=== PATIENT | female | born 1950 | race Caucasian/White ===

== ENCOUNTER → 2020-12-28 | Outpatient (CLI) | payer MEDICARE ==
--- NOTE | 2020-12-28 10:26 | CT ---
3 EXAMINATION TYPE: CT shoulder LT wo con DATE OF EXAM: 12/28/2020 COMPARISON: none HISTORY: Left shoulder pain CT DLP: [address] of the left shoulder with reconstruction imaging. TECHNIQUE: Unenhanced CT of the left shoulder was performed with bone and soft tissue window settings submitted in the axial coronal and sagittal planes. At a separate workstation 3-D TR imaging was ob tained. FINDINGS: I do not see evidence for fracture or dislocation. No evidence for subacromial impingement as there is a flat acromium. AC joint arthropathy with mild spurring and a vacuum changes seen. Mi ld spur formation involving the greater humeral tuberosity. Glenohumeral joint space is moderately t o severely narrowed. No obvious rotator cuff abnormality seen on CT. MRI is much more sensitive and specific to rotator cuff pathology. No soft tissue masses appreciated. Visualized portions of the r ight lung demonstrate right apical scarring. IMPRESSION: 1. Degenerative changes
== END | disposition home or self-care (01) ==
LOC: RADCTMAIN 08:17
PROVIDERS: ATTEND Orthopaedic Surgery Sports Medicine
DX: M19.012 Primary osteoarthritis, left shoulder (principal)

== ENCOUNTER → 2020-12-28 | Outpatient (CLI) | payer MEDICARE ==
[2020-12-28 09:29] LABS: Anisocytosis Slight; HCT 33.2 % (34.0-46.0); HGB 10.9 gm/dL (11.4-16.0); MCH 28.5 pg (25.0-35.0); MCHC 32.9 g/dL (31.0-37.0); MCV 86.7 fL (80.0-100.0); Mean Platelet Volume 6.5; Platelet Count 397 k/uL (150-450); RBC 3.83 m/uL (3.80-5.40); RDW 17.9 % (11.5-15.5); WBC 6.5 k/uL (3.8-10.6)
[2020-12-28 09:31] LABS: Appearance,Urine Clear (Clear); Bilirubin,Urine Negative (Negative); Blood,Urine Negative (Negative); Color,Urine Yellow; Glucose,Urine (UA) Negative (Negative); Ketones,Urine Negative (Negative); Leukocyte Esterase,Urine Small (Negative); Mucus,Urine Rare /hpf; Nitrite,Urine Negative (Negative); PH, Urine 5.5 (5.0-8.0); Protein,Urine Negative (Negative); RBC,Urine 1 /hpf (0-5); Specific Gravity,Urine 1.017 (1.001-1.035); WBC,Urine 2 /hpf (0-5)
[2020-12-28 09:39] LABS: INR 0.8 (<1.2); Prothrombin Time 9.4 sec (9.0-12.0)
[2020-12-28 09:42] LABS: Albumin 4.2 g/dL (3.5-5.0); Calcium 9.4 mg/dL (8.4-10.2); Potassium 5.1 mmol/L (3.5-5.1); Total Bilirubin 0.3 mg/dL (0.2-1.3); Total Protein 6.6 g/dL (6.3-8.2)
== END | disposition home or self-care (01) ==
LOC: LABPAT 08:38
PROVIDERS: ATTEND Orthopaedic Surgery Sports Medicine
DX: Z01.812 Encounter for preprocedural laboratory examination (principal)
CPT/HCPCS: 36415; 80053; 81001; 85027; 85610; 85730; 87070

== ENCOUNTER 2021-01-11 06:36 | Inpatient (IN) | payer MEDICARE ==
[2021-01-04 14:41] VITALS: BMI 34.9
[~2021-01-11 06:36] MED LIST: ACETAMINOPHEN TAB 500 MG TAB PO PRN; DEXAMETHASONE SOD PHOSPHATE 4 MG/ML 1 ML VIAL IV ONE; GABAPENTIN 300 MG CAP PO PRN; LACTATED RINGERS 1,000 ML IV SCH; LIDOCAINE 1% (10MG/ML) FOR IV START INTRADERMA PRN; MELOXICAM 7.5 MG TAB PO PRN; ONDANSETRON 4 MG/2 ML VIAL IVP ONE; ONDANSETRON 4 MG/2 ML VIAL IVP PRN; TRANEXAMIC ACID 1,000 MG in SODIUM CHLORIDE 0.9% 100 ML IVPB PRN
[2021-01-11] MEDS ORDERED: ONDANSETRON 4 MG/2 ML VIAL IVP PRN ×2 (07:00→10:06)
[2021-01-11] MEDS ORDERED: HYDROmorphone 0.5 MG/0.5 ML SYRINGE IVP PRN ×3 (07:00→10:06)
[2021-01-11] MEDS ORDERED: MIDAZOLAM 2 MG/2 ML VIAL IV ONE (07:34)
[2021-01-11] MEDS ORDERED: ePHEDrine SULFATE/0.9% NACL/PF 50 MG/5 ML SYRINGE IV ONE (07:50)
[2021-01-11] MEDS ORDERED: PHENYLEPHRINE-0.9% NACL SYG 1,000 MCG/10 ML SYRINGE ONE (07:50)
[2021-01-11] MEDS ORDERED: NEOSTIGMINE 1 MG/ML 10 ML VIAL ONE (07:50)
[2021-01-11] MEDS ORDERED: fentaNYL (PF) 50 MCG/ML 2 ML AMP ONE (07:50)
[2021-01-11] MEDS ORDERED: PROPOFOL 10 MG/ML 20 ML VIAL IV ONE (07:50)
[2021-01-11] MEDS ORDERED: SUCCINYLCHOLINE CHLORIDE 100 MG/5 ML SYR IV ONE (07:50)
[2021-01-11] MEDS ORDERED: TRANEXAMIC ACID 1,000 MG/10 ML VIAL ONE (07:50)
[2021-01-11] MEDS ORDERED: SODIUM CHLORIDE 0.9% 100 ML BAG ONE (07:50)
[2021-01-11] MEDS ORDERED: GLYCOPYRROLATE 0.2 MG/ML 2 ML VIAL ONE (07:50)
[2021-01-11] MEDS ORDERED: LIDOCAINE 1% INJ 10MG/ML (20 ML MDV) ONE (07:50)
[2021-01-11] MEDS ORDERED: ROPIVACAINE 5 MG/ML 30 ML VIAL ONE (07:50)
[2021-01-11] MEDS ORDERED: ROCURONIUM 10 MG/ML (5 ML VIAL) IV ONE (07:50)
--- NOTE | 2021-01-11 07:54 | P.ANPRN ---
Procedure Note - Anesthesia - Nerve Block Performed Left Interscalene Single Time Out Performed: Yes ([id number]) Date of Procedure: 01/11/21 Procedure Start Time: 07:34 Procedure Stop Time: 07:37 Location of Patient: PreOp Indication: Acute Post-Operative Pain, Requested by Surgeon Specifically requested for management of pain by DrMichelle: Bryson Steiner Sedation Type: Sedate with meaningful contact maintained Preparation: Sterile Prep Position: Supine Catheter: None Needle Types: Pajunk Needle Gauge: 21 Ultrasound used to visualize needle placement: Yes Ultrasound used to observe medication spread: Yes Injectate: 0.5% Ropivacaine (see comment for volume) (30cc) Blood Aspirated: No Pain Paresthesia on Injection Noted: No Resistance on Injection: Normal Image Stored and Saved: Yes Events: Uneventful and Well Tolerated
[2021-01-11] MEDS ORDERED: ceFAZolin 3,000 MG in SODIUM CHLORIDE 0.9% IRRIGATIO 3,000 ML IRRIGATION ONE (08:00)
[2021-01-11] MEDS ORDERED: VANCOMYCIN 1,000 MG VIAL MISCELLANE ONE (09:19)
[2021-01-11] MEDS ORDERED: LACTATED RINGERS 1,000 ML IV ONE (09:38)
[2021-01-11] MEDS ORDERED: HYDROmorphone 0.2 MG/1 ML SYRINGE IVP PRN (10:06)
[2021-01-11] MEDS ORDERED: METOCLOPRAMIDE 5 MG/ML 2 ML VIAL IVP PRN (10:06)
[2021-01-11] MEDS ORDERED: diphenhydrAMINE 25 MG CAP PO PRN (10:06)
[2021-01-11] MEDS ORDERED: SENNOSIDES-DOCUSATE SODIUM 1 EACH TAB PO PRN (10:06)
[2021-01-11] MEDS ORDERED: HYDROcodone/APAP 7.5-325MG 1 EACH TAB PO PRN (10:11)
--- NOTE | 2021-01-11 10:46 | XR ---
EXAMINATION TYPE: XR shoulder limited LT DATE OF EXAM: 01/11/2021 CLINICAL HISTORY: Pain. TECHNIQUE: Single portable view of left shoulder is obtained immediately postoperatively. COMPARISON: CT 2 weeks ago. FINDINGS: Metallic hardware from left shoulder surgery is satisfactory in position on frontal project ion with surrounding gas from recent surgery. [place] osseous structures are demineralized. Left basil ar opacity likely reflecting atelectatic changes noted. IMPRESSION: As above.
--- NOTE | 2021-01-11 11:21 | OP ---
OPERATIVE REPORT DATE OF PROCEDURE: 01/11/2021. SURGEON: Bryson Steiner MD. SCIENTIFIC INFORMATICS PROJECT LEADER: Henrique HAILE. PREOPERATIVE DIAGNOSIS: Left shoulder osteoarthrosis. POSTOPERATIVE DIAGNOSIS: Left shoulder osteoarthrosis. OPERATION: Left shoulder hemiarthroplasty. ANESTHESIA: General endotracheal. ESTIMATED BLOOD LOSS: 200 mL. COMPLICATIONS: None apparent. DISPOSITION: Postanesthesia care unit. DRAINS: None. INDICATIONS: Myesha is a very pleasant 70-year-old female with longstanding left shoulder pain. Workup including x-rays and MRI revealed advanced osteoarthrosis of the left shoulder. At this point, it is felt that she has failed conservative management. She would like to proceed with operative intervention. Risks of procedure were discussed with her in detail. These risks included, but were not limited to risk of infection, nerve damage, bleeding, pain, instability in the shoulder, loosening of the implants and deep infection. There is also risk of deep vein thrombosis which could lead to fatal pulmonary embolism. Of note, in her case, she did have a fairly significant and unusual anteversion of her glenoid. I did talk to her about potentially proceeding with just a hemiarthroplasty versus a reverse shoulder arthroplasty versus a total shoulder arthroplasty. We did discuss with her preoperatively that this would be an intraoperative decision. All of her questions with regard to the risks of procedure were answered to her satisfaction. Appropriate informed consent was obtained. DESCRIPTION OF PROCEDURE: The patient was identified in preoperative holding area. Surgical sites marked by both the patient and myself. She was given 2 grams of Ancef IV for prophylactic purposes. She was then transferred to the operative suite. She was placed supine on the operating room table. A general anesthetic was then administered and dosed per the anesthesia department without apparent complication. Examination under anesthesia was then performed of the left shoulder. Elevation was to 90 degrees. External rotation at the side was to 30 degrees. The patient was then placed in the beach chair position, well-padded and prepared for surgery. Great care was taken to ensure that her cervical spine was in neutral alignment, well-padded and maintained that way throughout the operative procedure. Great care was also taken to ensure that her legs were appropriately padded as well. The patient's left upper extremity was then prepped and draped in the usual sterile fashion. Standard surgical pause undertaken to ensure that we were operating on the correct site and that appropriate preoperative antibiotics had been given. All staff in the room were in agreement and we proceeded. The acromion AC joint clavicle and coracoid were marked with surgical pen. A planned incision starting at the level of the clavicle and extending distally over the deltopectoral interval approximately 1 cm lateral to the coracoid was marked with surgical pen. The incision was then made with a 10 blade scalpel. Dissection was carried down sharply in deltoid fascia. Deltopectoral interval was identified at the level of the clavicle. A small band retractor was then placed onto the proximal deltoid. I then released the deltoid fascia on the lateral aspect of the cephalic vein. The vein was then left in its bed medially. The cephalic vein was protected throughout the entire case. I then identified the flat clavipectoral fascia. This was incised proximally at the level of the coracoacromial ligament. The coracoacromial ligament was then left intact. I then used my finger to spread the interval between the conjoint tendon and the subscapularis. I felt for the axillary nerve which was readily palpable. I then cleared the acromial and subdeltoid spaces of bursal and scar tissue. I then utilized a Brown retractor to hold the deltoid and expose the humeral head. I then identified the bicipital groove. The biceps sheath, tendon sheath was then incised laterally. The long head of the biceps was then tenodesed to the surrounding fascia with 0 Vicryl interrupted sutures. I then proceeded to release the subscapularis in the anterior inferior shoulder capsule. The rotator cuff was inspected. The rotator cuff was intact. The rotator interval was identified. The course of the biceps tendon was also identified as mentioned. I then released the rotator interval. This was released at the base of the coracoid and then out laterally. The subscapularis and the capsule were then released intratendinously. The subscapularis and capsule release extended distally in a lazy-S fashion approximately 1 cm medial to the biceps tendon. I then continued to release the capsule along the inferior neck in a vertical fashion to approximately the 6 o'clock position. Great care was taken to ensure the capsule was always visualized as it was released as to avoid injuring the axillary nerve. I then brought the Contreras turntable engineer with the arm externally rotated and abducted. I continued to release the capsule inferomedially to the 4 o'clock position. The inferior osteophytes were now removed as well. This was done with a rongeur. I then proceeded with preparation of the humerus. I removed all the goat's yip osteophytes. I then removed the subchondral plates from the superior aspect of the humeral head utilizing a large rongeur. I then used a starting reamer to gain access to the humeral canal. This was again 1 cm medial to the rotator cuff insertion and 1 cm posterior to the bicipital groove. I then prepared the humeral canal with hand reaming. I started with a 6 mm reamer, increased incrementally in 1 mm increments until firm resistance was encountered. This was at 11 mm. The reamer handle was then left in place. I then utilized a humeral resection guide set at 30 degrees of retrotorsion. The cutting block was then set at approximately 1-2 mm above the insertion of the rotator cuff. I then proceeded to osteotomized the humeral head with an oscillating saw. I removed the resection guide and then completed the osteotomy. I then proceeded to broach the canal. I started with a size 7 broach and incrementally increased up to a size 11 broach. The size 11 trial stem was then left in place. I then pulled the proximal humerus out laterally. I inspected the joint. The stump of the long head biceps tendon was then removed. She did have a fairly significant sized loose body that was in the joint which was removed. I then placed the Bhattman retractor on the posterior glenoid. The Contreras stand was brought in and the arm was placed in approximately 80 degrees of abduction and then slight flexion on a Contreras stand. I then inspected the glenoid. 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 It was anteverted very significantly. The anterior rim of the glenoid was flush with the coracoid. I made a decision at this point in time that it was not amenable to any kind of glenoid fixation whether either be a reverse shoulder replacement or a standard glenoid. Decision was made to just proceed with a hemiarthroplasty at this point due to the significant dysplasia of the glenoid. I then exposed the proximal humerus. I then trialed the humeral head, started with a 42 head and proceeded up to a 46 head. I did try to maximize the head size as much as possible. A 46 x 24 x 47 head fit very nicely and secure. It was very stable throughout a range of motion. I then proceeded to place the real stem and real humeral head. I had the customer development representative open a Biomet size 11 mini stem and a 46 x 24 x 47 head. The stem was then implanted into the proximal humerus in approximately 30 degrees of retrotorsion. The Fernandez taper was then impacted into the humeral head on the back table. It was then impacted onto a dry trunnion and Fernandez taper on the actual stem. The shoulder was then reduced. It was stable throughout a range of motion. I then proceeded with repair of the subscapularis and rotator interval. The shoulder was then thoroughly irrigated with sterile saline solution with antibiotic added via pulse lavage. The rotator interval was closed very tightly with 0 Vicryl interrupted sutures. The subscapularis was then repaired with #2 FiberWire interrupted suture. I was able to repair the subscapularis with the arm in 20-30 degrees of external rotation. It was a very easy repair without any undue tension on the tendon itself. Again the wound was thoroughly irrigated with sterile saline solution with antibiotic added. Approximately 500 mg of vancomycin powder was then placed deep. The deltopectoral interval was then closed with 0 Vicryl interrupted suture. Again, irrigation was then taken place via pulse lavage. The remaining 500 mg of vancomycin powder was placed subcutaneously. The subcutaneous tissue was closed with 2-0 Vicryl interrupted suture and the skin was closed with a running 3-0 Quill suture. Dermabond was applied to the incision and a sterile dressing was applied. The patient's left upper extremity was placed in a standard sling. All sponge and needle counts were deemed correct prior to closure. The patient tolerated the procedure without apparent complication. She was transferred to the recovery room in stable condition. Of note, prior to closing the deltopectoral interval, the axillary nerve was again palpated and found to be intact. MMODL / IJN: [id number] /
[2021-01-11] MEDS: LACTATED RINGERS 1,000 ML IV SCH ×2 (14:10→23:02)
[2021-01-11] MEDS ORDERED: ALBUTEROL NEBULIZED 2.5 MG/3 ML INHALATION PRN (14:59)
--- NOTE | 2021-01-11 17:17 | P.CONS ---
History of Present Illness - Reason for Consult Consult date: 01/11/21 Medical management Requesting physician: Bryson Steiner - Chief Complaint Left shoulder surgery - History of Present Illness Consultation: This is a very pleasant 70-year-old patient of Dr. Montoya. Chronic stable medical conditions include COPD, glaucoma, essential hypertension, primary osteoarthritis in multiple joints, anxiety depression. Patient has undergone left shoulder surgery. Left arm is in a sling. No nausea vomiting. Sitting up in a chair. Patient's brother is visiting. No chest pain or shortness of breath. Patient's had a cardiac catheterization prickly but is not sure what was done Review of systems: GEN.: None EYES: None HEENT: None NECK: None RESPIRATORY: None CARDIOVASCULAR: None GASTROINTESTINAL: Takes laxatives GENITOURINARY: Urinary incontinence MUSCULOSKELETAL: As above LYMPHATICS: None HEMATOLOGICAL: None PSYCHIATRY: None NEUROLOGICAL: [Trouble sleeping Past medical history to include: COPD, glaucoma, essential hypertension primary osteoarthritis, pulmonary embolism, cardiac catheterization patient not sure what was done, anxiety depression Social history: Patient smoked from 1968 through 1985. One pack a day. Alcohol rarely. Lives alone Physical examination: VITAL SIGNS: 97.8, 84, 17, 130/75, 95% on 2 L GENERAL: BMI 35.3, sitting on a chair, awake. EYES: Pupils equal. Conjunctiva normal. Admitting eyeglasses HEENT: External appearance of nose and ears normal, oral cavity grossly normal. NECK: JVD not raised; masses not palpable. HEART: First and second heart sounds are normal; no edema. LUNGS: Respiratory rate normal; clear to auscultation MUSCULAR skeletal: Evidence of OA especially in the hands, left shoulder dressing, left arm in a sling. Patient is able to move her fingers and has sensations preserved. ABDOMEN: Soft, nontender, liver spleen not palpable, no masses palpable. PSYCH: Alert and oriented x3; mood and affect normal. NEUROLOGICAL: Cranial nerves grossly intact; no facial asymmetry, power and sensation grossly intact. LYMPHATICS: No lymph nodes palpable in the axilla and neck INVESTIGATIONS, reviewed in the clinical context: WBC 6.5 hemoglobin 10.9 platelets 397 potassium 5.1 creatinine 0.89 Coronavirus [PCR]-not detected Assessment and plan: -Left shoulder hemiarthroplasty. Left arm is in a sling. Pain medications as per Dr. Steiner. -COPD in a previous smoker Continue with inhalers : Chronic insomnia continue with Pamelor -Chronic constipation Place the patient on Senokot-S -Essential hypertension Continue with lisinopril and Norvasc keeping a close eye on the blood pressure -Primary osteoarthritis Use. Medications as needed -Anxiety depression otherwise specified Continue with Abilify, fluoxetine, Klonopin -Obesity BMI 35.3 Weight loss measures as outpatient and follow with PCP Care was discussed with the patient and brother at the bedside. Home medications resumed. Thank you Dr. Steiner Past Medical History Past Medical History: COPD, Eye Disorder, Hypertension, Osteoarthritis (OA), Pulmonary Embolus (PE) Additional Past Medical History / Comment(s): glaucoma History of Any Multi-Drug Resistant Organisms: None Reported Past Surgical History: Back Surgery, Heart Catheterization, Hysterectomy, Joint Replacement Additional Past Surgical History / Comment(s): back fusion, benito knee replacement, benito shoulder replacement, sinus sx Past Anesthesia/Blood Transfusion Reactions: Previous Problems w/ Anesthesia Additional Past Anesthesia/Blood Transfusion Reaction / Comm: states with one sx "was hard to wake up" Smoking Status: Former smoker - Past Family History Mother Family Medical History: Deep Vein Thrombosis (DVT) Medications and Allergies Home Medications Medication Instructions Recorded Confirmed Type ARIPiprazole [Abilify] 20 mg PO QAM 01/04/21 01/11/21 History Albuterol Inhaler [Ventolin Hfa 2 puff INHALATION RT-QID PRN 01/04/21 01/11/21 History Inhaler] Cholecalciferol [Vitamin D3 (25 25 mcg PO DAILY 01/04/21 01/04/21 History Mcg = 1000 Iu)] Diclofenac Sodium [Voltaren-Xr] 100 mg PO DAILY 01/04/21 01/04/21 History FLUoxetine HCL [Sarafem] 120 mg PO QAM 01/04/21 01/11/21 History Ferrous Sulfate [Feosol] 325 mg PO DAILY 01/04/21 01/11/21 History HYDROcodone/APAP 5-325MG [[place] 1 tab PO Q6HR PRN 01/04/21 01/11/21 History 5-325] Latanoprost/Pf [Latanoprost 0.005% 2 drop BOTH EYES HS 01/04/21 01/11/21 History Eye Drop] Mometasone/Formoterol [Dulera 200 2 puff INHALATION BID 01/04/21 01/11/21 History Mcg-5 Mcg Inhaler] Nortriptyline HCl [Pamelor] 75 mg PO HS 01/04/21 01/11/21 History Vits A,C,E/Lutein/Minerals 1 each PO DAILY 01/04/21 01/04/21 History [Ocuvite with Lutein Tablet] amLODIPine [Norvasc] 10 mg PO HS 01/04/21 01/11/21 History clonazePAM [KlonoPIN] 0.5 mg PO DIRECTED PRN 01/04/21 01/11/21 History tiZANidine [Zanaflex] 4 mg PO DIRECTED PRN 01/04/21 01/11/21 History Doxycycline Hyclate 100 mg PO BID #10 tab 01/11/21 Rx lisinopriL 10 mg PO 0900,2100 01/11/21 01/11/21 History Allergies Allergy/AdvReac Type Severity Reaction Status Date / Time ciprofloxacin [From Cipro] Allergy Rash/Hives Verified 01/04/21 14:07 Physical Exam Vitals: Vital Signs Temp Pulse Pulse Resp BP BP Pulse Ox 01/11/21 14:00 97.8 F 84 17 130/75 95 01/11/21 13:32 77 16 114/59 96 01/11/21 13:04 77 16 117/55 95 01/11/21 12:34 73 16 122/57 95 01/11/21 12:01 77 16 129/60 96 01/11/21 11:50 75 16 114/55 94 L 01/11/21 11:20 75 16 124/60 92 L 01/11/21 11:02 75 16 130/79 99 01/11/21 10:45 74 16 123/59 99 01/11/21 10:30 74 16 127/64 100 01/11/21 10:16 70 16 129/60 100 01/11/21 10:04 97.2 F L 73 16 144/67 100 01/11/21 07:46 75 16 116/56 98 01/11/21 07:05 97.7 F 85 16 124/61 95 Intake and Output 01/11/21 01/11/21 01/11/21 06:59 14:59 22:59 Intake Total 1551 Output Total 200 Balance 1351 Intake: IV 1551 Output: Estimated Blood Loss 200 Other: Weight 90.3 kg
[2021-01-11] MEDS: SYMBICORT 160-4.5 MCG INHALER INHALATION SCH (19:28)
[2021-01-11 20:05] VITALS: RESP 16
[2021-01-11] MEDS: lisinopriL 10 MG TAB PO SCH (20:06)
[2021-01-11] MEDS ORDERED: LATANOPROST 0.005% OPHTH DROPS 2.5 ML BTL BOTH EYES SCH (21:00)
[2021-01-11] MEDS ORDERED: NORTRIPTYLINE 25 MG CAP PO SCH (21:00)
[2021-01-12] MEDS: HYDROcodone/APAP 7.5-325MG 1 EACH TAB PO PRN ×2 (03:47→09:32)
[2021-01-12 04:59] VITALS: BP 117/72; PULSE 75; TEMP 98.1
[2021-01-12 05:39] LABS: Anisocytosis Slight; Basophils % (A) 0 %; Eosinophils # (A) 0.1 k/uL (0-0.7); Eosinophils % (A) 1 %; HCT 31.7 % (34.0-46.0); HGB 10.5 gm/dL (11.4-16.0); Lymphocytes # (A) 1.1 k/uL (1.0-4.8); Lymphocytes % (A) 15 %; MCH 29.1 pg (25.0-35.0); MCHC 33.2 g/dL (31.0-37.0); MCV 87.5 fL (80.0-100.0); Mean Platelet Volume 6.8; Monocytes # (A) 0.5 k/uL (0-1.0); Monocytes % (A) 7 %; Neutrophils # (A) 5.9 k/uL (1.3-7.7); Neutrophils % (A) 77 %; Platelet Count 330 k/uL (150-450); RBC 3.62 m/uL (3.80-5.40); RDW 17.7 % (11.5-15.5); WBC 7.6 k/uL (3.8-10.6)
[2021-01-12] MEDS: LACTATED RINGERS 1,000 ML IV SCH (07:55)
[2021-01-12] MEDS: lisinopriL 10 MG TAB PO SCH (08:14)
[2021-01-12] MEDS: SYMBICORT 160-4.5 MCG INHALER INHALATION SCH (08:25)
[2021-01-12] MEDS ORDERED: FERROUS SULFATE 325 MG TAB PO SCH (09:00)
[2021-01-12] MEDS ORDERED: VIT A,C & E-LUTEIN-MINERALS 1 EACH TAB PO SCH (09:00)
[2021-01-12] MEDS ORDERED: FLUoxetine HCL 20 MG CAP PO SCH (09:00)
[2021-01-12] MEDS ORDERED: CHOLECALCIFEROL 25 MCG (1000 IU) TABLET PO SCH (09:00)
--- NOTE | 2021-01-12 09:49 | P.DS ---
Providers Date of admission: 01/11/21 06:36 Expected date of discharge: 01/12/21 Attending physician: Bryson Steiner Consults: 01/11/21 10:06 Consult Physician Routine Consulting Provider: Nick Lowry Consult Reason/Comments: post op medical management Do you want consulting provider notified?: Yes Primary care physician: New Montoya - Discharge Diagnosis(es) (1) Primary osteoarthritis, left shoulder Patient was admitted to the OR on 03/13/2021 to undergo a left total shoulder arthroplasty. She had failed conservative measures as an outpatient and desired to proceed with elective surgery after given informed consent. She underwent the above procedure which she tolerated well without complication. Postoperative hospital course has remained without complication. On day of discharge she is afebrile, vital signs stable, labs within acceptable ranges, tolerating by mouth meds and diet, voiding without difficulty, positive flatus, denies abdominal pain or calf pain, pain is controlled on oral pain medication and has no new complaints. Wound is benign, neurovascular status is intact, calves are soft and nontender, abdomen soft and nontender. Review of systems is negative for numbness, tingling, fever, chills, chest pain, shortness of breath, nausea, vomiting, dizziness, headaches, slurred speech or other Current Visit: Yes Status: Acute Priority: Medium Procedures: Left Shoulder hemiarthroplasty Patient Condition at Discharge: Good Plan - Discharge Summary Discharge Rx Participant: Yes New Discharge Prescriptions: New Doxycycline Hyclate 100 mg PO BID #10 tab Docusate [Colace] 100 mg PO BID #60 capsule HYDROcodone/APAP 7.5-325MG [[place] 7.5-325] 1 - 2 each PO Q6HR PRN #42 tab PRN Reason: Pain No Action Albuterol Inhaler [Ventolin Hfa Inhaler] 2 puff INHALATION RT-QID PRN PRN Reason: Shortness Of Breath Latanoprost/Pf [Latanoprost 0.005% Eye Drop] 2 drop BOTH EYES HS Cholecalciferol [Vitamin D3 (25 Mcg = 1000 Iu)] 25 mcg PO DAILY Nortriptyline HCl [Pamelor] 75 mg PO HS Ferrous Sulfate [Feosol] 325 mg PO DAILY Diclofenac Sodium [Voltaren-Xr] 100 mg PO DAILY tiZANidine [Zanaflex] 4 mg PO DIRECTED PRN PRN Reason: Pain lisinopriL 10 mg PO 0900,2100 HYDROcodone/APAP 5-325MG [[place] 5-325] 1 tab PO Q6HR PRN PRN Reason: Pain amLODIPine [Norvasc] 10 mg PO HS FLUoxetine HCL [Sarafem] 120 mg PO QAM ARIPiprazole [Abilify] 20 mg PO QAM clonazePAM [KlonoPIN] 0.5 mg PO DIRECTED PRN PRN Reason: Anxiety Vits A,C,E/Lutein/Minerals [Ocuvite with Lutein Tablet] 1 each PO DAILY Mometasone/Formoterol [Dulera 200 Mcg-5 Mcg Inhaler] 2 puff INHALATION BID Discharge Medication List ARIPiprazole [Abilify] 20 mg PO QAM 01/04/21 [History] Albuterol Inhaler [Ventolin Hfa Inhaler] 2 puff INHALATION RT-QID PRN 01/04/21 [History] Cholecalciferol [Vitamin D3 (25 Mcg = 1000 Iu)] 25 mcg PO DAILY 01/04/21 [History] Diclofenac Sodium [Voltaren-Xr] 100 mg PO DAILY 01/04/21 [History] FLUoxetine HCL [Sarafem] 120 mg PO QAM 01/04/21 [History] Ferrous Sulfate [Feosol] 325 mg PO DAILY 01/04/21 [History] HYDROcodone/APAP 5-325MG [[place] 5-325] 1 tab PO Q6HR PRN 01/04/21 [History] Latanoprost/Pf [Latanoprost 0.005% Eye Drop] 2 drop BOTH EYES HS 01/04/21 [History] Mometasone/Formoterol [Dulera 200 Mcg-5 Mcg Inhaler] 2 puff INHALATION BID 01/04/21 [History] Nortriptyline HCl [Pamelor] 75 mg PO HS 01/04/21 [History] Vits A,C,E/Lutein/Minerals [Ocuvite with Lutein Tablet] 1 each PO DAILY 01/04/21 [History] amLODIPine [Norvasc] 10 mg PO HS 01/04/21 [History] clonazePAM [KlonoPIN] 0.5 mg PO DIRECTED PRN 01/04/21 [History] tiZANidine [Zanaflex] 4 mg PO DIRECTED PRN 01/04/21 [History] Doxycycline Hyclate 100 mg PO BID #10 tab 01/11/21 [Rx] lisinopriL 10 mg PO 0900,2100 01/11/21 [History] Docusate [Colace] 100 mg PO BID #60 capsule 01/12/21 [Rx] HYDROcodone/APAP 7.5-325MG [[place] 7.5-325] 1 - 2 each PO Q6HR PRN #42 tab 01/12/21 [Rx] Follow up Appointment(s)/Referral(s): Bryson Steiner MD [STAFF PHYSICIAN] - 10 Days Activity/Diet/Wound Care/Special Instructions: maintain sling keep wound clean and dry take meds as directed Non weightbearing left upper extremity f/U with Dr. Steiner in office Discharge Disposition: HOME SELF-CARE
--- NOTE | 2021-01-13 00:22 | P.PN ---
Progress Note - Text Progress Note Date: 01/12/21 - Chief Complaint Left shoulder surgery Consultation: This is a very pleasant 70-year-old patient of Dr. Montoya. Chronic stable medical conditions include COPD, glaucoma, essential hypertension, primary osteoarthritis in multiple joints, anxiety depression. Patient has undergone left shoulder surgery. Left arm is in a sling. Today: Resting in bed. Comfortable. Pain control. No nausea vomiting. Did tolerate her breakfast. Review of systems: Was done for constitutional, cardiovascular, GI, pulmonary. relevant finding as above Current medications reviewed in today's electronic records Past medical history to include: COPD, glaucoma, essential hypertension primary osteoarthritis, pulmonary embolism, cardiac catheterization patient not sure what was done, anxiety depression Social history: Patient smoked from 1968 through 1985. One pack a day. Alcohol rarely. Lives alone Physical examination: VITAL SIGNS: 98.1, 75, 16, 117/72, 92% room air GENERAL: BMI 35.3, sitting on a chair, awake. EYES: Pupils equal. Conjunctiva normal. Admitting eyeglasses HEENT: External appearance of nose and ears normal, oral cavity grossly normal. NECK: JVD not raised; masses not palpable. HEART: First and second heart sounds are normal; no edema. LUNGS: Respiratory rate normal; clear to auscultation MUSCULAR skeletal: Evidence of OA especially in the hands, left shoulder dressing, left arm in a sling. Patient is able to move her fingers and has sensations preserved. ABDOMEN: Soft, nontender, liver spleen not palpable, no masses palpable. PSYCH: Alert and oriented x3; mood and affect normal. INVESTIGATIONS, reviewed in the clinical context: January 12: WBC 7.6 hemoglobin 10.5 WBC 6.5 hemoglobin 10.9 platelets 397 potassium 5.1 creatinine 0.89 Coronavirus [PCR]-not detected Assessment and plan: -Left shoulder hemiarthroplasty. Left arm is in a sling. Pain medications as per Dr. Steiner. -COPD in a previous smoker Continue with inhalers : Chronic insomnia continue with Pamelor -Chronic constipation Place the patient on Senokot-S -Essential hypertension Continue with lisinopril and Norvasc keeping a close eye on the blood pressure -Primary osteoarthritis Use. Medications as needed -Anxiety depression otherwise specified Continue with Abilify, fluoxetine, Klonopin -Obesity BMI 35.3 Weight loss measures as outpatient and follow with PCP Patient told to hold off on Norvasc for now. Check blood pressure every morning. Once the systolic is above 140 dental resumed the Norvasc. Follow-up with Dr. Montoya Thank you Dr. Steiner
== END 2021-01-12 13:41 | disposition home or self-care (01) | DRG 483 ==
LOC: 2ORMAIN 06:36 → 5NMEDONC 13:32
PROVIDERS: ADMIT Orthopaedic Surgery Sports Medicine; ATTEND Orthopaedic Surgery Sports Medicine
PROC: 0RRK0J6 Replacement of Left Shoulder Joint with Synthetic Substitute, Humeral Surface, Open Approach (ICD-10-PCS; principal; 2021-01-11 08:00)
DX: M19.012 Primary osteoarthritis, left shoulder (principal); J44.9 Chronic obstructive pulmonary disease, unspecified; H40.9 Unspecified glaucoma; I10 Essential (primary) hypertension; Z86.711 Personal history of pulmonary embolism; Z87.891 Personal history of nicotine dependence; F51.04 Psychophysiologic insomnia; K59.09 Other constipation; F41.8 Other specified anxiety disorders; E66.9 Obesity, unspecified; Z68.35 Body mass index [BMI] 35.0-35.9, adult; Z79.51 Long term (current) use of inhaled steroids; Z90.710 Acquired absence of both cervix and uterus; Z96.653 Presence of artificial knee joint, bilateral; Z98.1 Arthrodesis status
CPT/HCPCS: 64415; 76942; 85025; 87635; 88300; 94640; 94760

== ENCOUNTER 2022-10-25 10:31 | Inpatient (IN) | payer MEDICARE ==
[2022-10-25] MEDS ORDERED: ONDANSETRON 4 MG/2 ML VIAL IVP STA (13:42)
[2022-10-25] MEDS ORDERED: HYDROmorphone 1 MG/ML 1 ML SYRINGE IVP STA (13:42)
[2022-10-25] MEDS ORDERED: cefTRIAXone IN SWFI 1,000 MG/10 ML SYRINGE IVP STA (14:26)
--- NOTE | 2022-10-25 14:26 | ED ---
Abdominal Pain HPI - General Chief Complaint: Abdominal Pain Stated Complaint: colitis Time Seen by Provider: 10/25/22 10:45 Source: patient, RN/MD, EMS Mode of arrival: EMS Limitations: no limitations - History of Present Illness Initial Comments: Patient presents to the emergency department as a transfer from [facility]. Reports that she started having some abdominal pain yesterday after breakfast. It's located in the right lower quadrants. She did have emesis yesterday. States it's crampy in nature. She went in the [facility] t his morning. Has a history of IBS, hysterectomy and rectocele repair. They did perform laboratory studies. White count was 7.6. Creatinine 0.7. Lactic acid 0.9. CT was performed of the abdomen and pelvis. Done with contrast. CT demonstrated inflammatory changes with wall thickening involving the proximal ascending colon with subtle surrounding inflammatory changes. Short segment of wall thickening at the ileocecal junction. Appendix not seen. Patient was given Dilaudid and Flagyl. Continued to have extensive pain and therefore she was transferred for surgery consult. Patient arrives and states she has 8 out of 10 pain. No fevers. No other alleviating, precipitating or modifying factors - Related Data Home Medications Medication Instructions Recorded Confirmed ARIPiprazole [Abilify] 20 mg PO DAILY 01/04/21 10/25/22 Nortriptyline HCl [Pamelor] 75 mg PO HS 01/04/21 10/25/22 Vits A,C,E/Lutein/Minerals 1 each PO DAILY 01/04/21 10/25/22 [Ocuvite with Lutein Tablet] amLODIPine [Norvasc] 10 mg PO HS 01/04/21 10/25/22 clonazePAM [KlonoPIN] 1 mg PO HS PRN 01/04/21 10/25/22 lisinopriL [Prinivil] 10 mg PO BID 01/11/21 10/25/22 DULoxetine HCL [Cymbalta] 60 mg PO DAILY 10/25/22 10/25/22 Fluticasone Propion/Salmeterol 1 puff INHALATION RT-BID 10/25/22 10/25/22 [Fluticasone-Salmeterol 250-50] HYDROcodone/APAP 7.5-325MG [[place] 1 tab PO TID 10/25/22 10/25/22 7.5-325] Omeprazole [PriLOSEC] 20 mg PO DAILY 10/25/22 10/25/22 Previous Rx's Medication Instructions Recorded Amoxic-Pot Clav 875-125Mg 1 tab PO BID 10 Days #20 tab 10/28/22 [Augmentin 875-125] Allergies Allergy/AdvReac Type Severity Reaction Status Date / Time ciprofloxacin [From Cipro] Allergy Rash/Hives Verified 10/25/22 14:09 Review of Systems ROS Statement: Those systems with pertinent positive or pertinent negative responses have been documented in the HPI. ROS Other: All systems not noted in ROS Statement are negative. Past Medical History Past Medical History: COPD, Eye Disorder, Hypertension, Osteoarthritis (OA), Pulmonary Embolus (PE) Additional Past Medical History / Comment(s): glaucoma History of Any Multi-Drug Resistant Organisms: None Reported Past Surgical History: Back Surgery, Heart Catheterization, Hysterectomy, Joint Replacement Additional Past Surgical History / Comment(s): back fusion, benito knee replacement, benito shoulder replacement, sinus sx Past Anesthesia/Blood Transfusion Reactions: Previous Problems w/ Anesthesia Additional Past Anesthesia/Blood Transfusion Reaction / Comment(s): states with one sx "was hard to wake up" Past Psychological History: Anxiety, Depression Smoking Status: Former smoker Past Alcohol Use History: None Reported Past Drug Use History: None Reported - Past Family History Mother Family Medical History: Deep Vein Thrombosis (DVT) General Exam Limitations: no limitations General appearance: alert, in no apparent distress Head exam: Present: atraumatic, normocephalic, normal inspection Eye exam: Present: normal appearance, PERRL, EOMI. Absent: scleral icterus, conjunctival injection, periorbital swelling ENT exam: Present: normal exam, mucous membranes moist Neck exam: Present: normal inspection. Absent: tenderness, meningismus, lymphadenopathy Respiratory exam: Present: normal lung sounds bilaterally. Absent: respiratory distress, wheezes, rales, rhonchi, stridor Cardiovascular Exam: Present: regular rate, normal rhythm, normal heart sounds. Absent: systolic murmur, diastolic murmur, rubs, gallop, clicks GI/Abdominal exam: Present: soft, tenderness (rlq), normal bowel sounds. Absent: distended, guarding, rebound, rigid Extremities exam: Present: normal inspection, full ROM, normal capillary refill. Absent: tenderness, pedal edema, joint swelling, calf tenderness Back exam: Present: normal inspection Neurological exam: Present: alert, oriented X3, CN II-XII intact Psychiatric exam: Present: normal affect, normal mood Skin exam: Present: warm, dry, intact, normal color. Absent: rash Course Vital Signs 10/25/22 10/25/22 10/25/22 10:34 15:15 16:18 Temperature 98.4 F 98.8 F Pulse Rate 75 75 75 Respiratory 18 16 18 Rate Blood Pressure 122/60 131/69 119/61 O2 Sat by Pulse 98 97 98 Oximetry Medical Decision Making - Medical Decision Making Was pt. sent in by a medical professional or institution (, PA, ECONOMIC ANALYST, urgent care, hospital, or detention...) When possible be specific [facility] [place] Did you speak to anyone other than the patient for history (EMS, parent, family, police, friend...)? What history was obtained from this source Dr. castaneda from [facility] [place] Did you review nursing and triage notes (agree or disagree)? Why? @ -[I reviewed and agree with nursing and triage notes] Were old charts reviewed (outside hosp., previous admission, EMS record, old EKG, old radiological studies, urgent care reports/EKG's, detention records)? Report findings chart from [facility] from earlier today reviewed Differential Diagnosis (chest pain, altered mental status, abdominal pain women, abdominal pain men, vaginal bleeding, weakness, fever, dyspnea, syncope, headache, dizziness, GI bleed, back pain, seizure, CVA, palpatations, mental health)? MDM Differential Abdominal Pain Women: Appendicitis, Cholecystitis, diverticulosis, ischemic bowel, pancreatitis, hepatitis, UTI, gastroenteritis, AAA, incarcerated hernia, bowel obstruction, constipation, inflammatory bowel, hepatitis, peptic ulcer disease, splenic infarction, perforated viscus, vulvitis, ovarian torsion, PID, kidney stone, placenta abruption... This is not meant to be an all-inclusive list EKG interpreted by me (3pts min.). no X-rays interpreted by me (1pt min.). @ -[None done] CT interpreted by me (1pt min.). @ -[None done] U/S interpreted by me (1pt. min.). @ -[None done] What testing was considered but not performed or refused? (CT, X-rays, U/S, labs)? Why? @ -[None] What meds were considered but not given or refused? Why? @ -[None] Did you discuss the management of the patient with other professionals (professionals i.e. , PA, ECONOMIC ANALYST, lab, RT, psych nurse, social media specialist, field recorder, teacher, tactical/mobile watch officer, immigration case manager)? Give summary Dr. mariano the surgeon financial analysis consultant and with admitting physician Was smoking cessation discussed for >3mins.? @ -[No] Was critical care preformed (if so, how long)? @ -[No] Were there social determinants of health that impacted care today? How? (Homelessness, low income, unemployed, alcoholism, drug addiction, transportation, low edu. Level, literacy, decrease access to med. care, nursing home, rehab)? @ -[No] Was there de-escalation of care discussed even if they declined (Discuss DNR or withdrawal of care, Hospice)? DNR status @ -[No] What co-morbidities impacted this encounter? (DM, HTN, Smoking, COPD, CAD, Cancer, CVA, ARF, Chemo, Hep., AIDS, mental health diagnosis, sleep apnea, morbid obesity)? IBS Was patient admitted / discharged? Hospital course, mention meds given and route, prescriptions, significant lab abnormalities, going to OR and other pertinent info. (Location she was placed into room 5. Thorough history and physical exam is performed. Patient is requesting pain medications. She is given 1 mg of Dilaudid and 4 mg of Zofran. I did review the patient's transfer packet. Called and spoke with Dr. Mariano. States that he feels the patient should be admitted to the hospital for overnight observation will consult on the patient in the morning. She did receive Flagyl. I did order Flagyl 3 times daily as well as adding on Rocephin. Patient agreeable to admission. Spoke with Dr. ralph who agreed to admit the patient. She is taken to the floor in stable condition Undiagnosed new problem with uncertain prognosis? yes Drug Therapy requiring intensive monitoring for toxicity (Heparin, Nitro, Insulin, Cardizem)? @ -[No] Were any procedures done? @ -[No] Diagnosis/symptom? acute rlq abd pain Acute, or Chronic, or Acute on Chronic? acute Uncomplicated (without systemic symptoms) or Complicated (systemic symptoms)? complicated Side effects of treatment? allergic reaction Exacerbation, Progression, or Severe Exacerbation? @ -[No] Poses a threat to life or bodily function? How? (Chest pain, [place], [place], pneumonia, PE, COPD, DKA, ARF, appy, cholecystitis, CVA, Diverticulitis, Homicidal, Suicidal, threat to staff... and all critical care pts) @ -[No] - Lab Data Result diagrams: 10/27/22 06:19 10/27/22 06:19 Lab Results 10/25/22 10/25/22 10/26/22 Range/Units 15:12 15:12 05:16 WBC 6.6 5.72 (3.8-10.6) k/uL RBC 3.93 3.81 L (3.80-5.40) m/uL Hgb 12.4 11.9 L (11.4-16.0) gm/dL Hct 36.6 37.5 (34.0-46.0) % MCV 93.1 98.4 H (80.0-100.0) fL MCH 31.6 31.2 (25.0-35.0) pg MCHC 34.0 31.7 L (31.0-37.0) g/dL RDW 13.0 13.5 (11.5-15.5) % Plt Count 264 273 (150-450) k/uL MPV 7.3 9.8 Immature Gran % (Auto) 0.5 % Absolute Nucleated RBC 0 (0.00-0.00) X 10*3/uL Neutrophils % 75 64.9 % Lymphocytes % 15 20.3 % Monocytes % 6 10.1 % Eosinophils % 3 3.5 % Basophils % 0 0.7 % Immature Gran # 0.03 (0.00-0.04) X 10*3/uL Neutrophils # 4.9 3.71 (1.3-7.7) k/uL Lymphocytes # 1.0 1.16 (1.0-4.8) k/uL Monocytes # 0.4 0.58 (0-1.0) k/uL Eosinophils # 0.2 0.20 (0-0.7) k/uL Basophils # 0.0 0.04 (0-0.2) k/uL NRBC/100 WBC Diff 0 (0.0-0.0) /100 WBCS Sodium 136 L (137-145) mmol/L Potassium 3.8 (3.5-5.1) mmol/L Chloride 103 (98-107) mmol/L Carbon Dioxide 28 (22-30) mmol/L Anion Gap 5 mmol/L BUN 12 (7-17) mg/dL Creatinine 0.60 (0.52-1.04) mg/dL Est GFR (CKD-EPI)AfAm >90 (>60 ml/min/1.73 sqM) Est GFR (CKD-EPI)NonAf >90 (>60 ml/min/1.73 sqM) BUN/Creatinine Ratio (12.00-20.00) Ratio Glucose 89 (74-99) mg/dL Calcium 8.9 (8.4-10.2) mg/dL Total Bilirubin 0.8 (0.2-1.3) mg/dL AST 22 (14-36) U/L ALT 16 (4-34) U/L Alkaline Phosphatase 99 (38-126) U/L Total Protein 6.2 L (6.3-8.2) g/dL Albumin 4.0 (3.5-5.0) g/dL Globulin (1.6-3.3) g/dL Albumin/Globulin Ratio (1.60-3.17) g/dL 10/26/22 10/27/22 10/27/22 Range/Units 05:16 06:19 06:19 WBC 3.03 L (3.8-10.6) k/uL RBC 3.30 L (3.80-5.40) m/uL Hgb 10.3 L (11.4-16.0) gm/dL Hct 32.2 L (34.0-46.0) % MCV 97.6 H (80.0-100.0) fL MCH 31.2 (25.0-35.0) pg MCHC 32.0 (31.0-37.0) g/dL RDW 13.3 (11.5-15.5) % Plt Count 249 (150-450) k/uL MPV 9.8 Immature Gran % (Auto) 0.7 % Absolute Nucleated RBC 0 (0.00-0.00) X 10*3/uL Neutrophils % 46.6 % Lymphocytes % 32.3 % Monocytes % 12.5 % Eosinophils % 6.9 % Basophils % 1.0 % Immature Gran # 0.02 (0.00-0.04) X 10*3/uL Neutrophils # 1.41 L (1.3-7.7) k/uL Lymphocytes # 0.98 (1.0-4.8) k/uL Monocytes # 0.38 (0-1.0) k/uL Eosinophils # 0.21 (0-0.7) k/uL Basophils # 0.03 (0-0.2) k/uL NRBC/100 WBC Diff 0 (0.0-0.0) /100 WBCS Sodium 139 141 (137-145) mmol/L Potassium 4.1 4.0 (3.5-5.1) mmol/L Chloride 103 105 (98-107) mmol/L Carbon Dioxide 25.7 26.3 (22-30) mmol/L Anion Gap 10.30 10.00 mmol/L BUN 10.8 8.3 L (7-17) mg/dL Creatinine 0.7 0.7 (0.52-1.04) mg/dL Est GFR (CKD-EPI)AfAm 98.9 97.2 (>60 ml/min/1.73 sqM) Est GFR (CKD-EPI)NonAf 85.4 83.9 (>60 ml/min/1.73 sqM) BUN/Creatinine Ratio 15.43 11.65 L (12.00-20.00) Ratio Glucose 105 88 (74-99) mg/dL Calcium 9.3 8.8 (8.4-10.2) mg/dL Total Bilirubin 0.50 (0.2-1.3) mg/dL AST 16 (14-36) U/L ALT 14 (4-34) U/L Alkaline Phosphatase 106 (38-126) U/L Total Protein 5.7 L (6.3-8.2) g/dL Albumin 4.0 (3.5-5.0) g/dL Globulin 1.7 (1.6-3.3) g/dL Albumin/Globulin Ratio 2.35 (1.60-3.17) g/dL Disposition Clinical Impression: RLQ abdominal pain, Colitis Disposition: ADMITTED IP TO THIS HOSP Condition: Serious Is patient prescribed a controlled substance at d/c from ED?: No Time of Disposition: 15:18 Decision to Admit Reason: Admit from EC Decision Date: 10/25/22 Decision Time: 15:18
[2022-10-25] MEDS ORDERED: HYDROmorphone 1 MG/ML 1 ML SYRINGE IVP PRN (15:18)
[2022-10-25] MEDS ORDERED: ONDANSETRON 4 MG/2 ML VIAL IVP PRN (15:18)
[2022-10-25] MEDS ORDERED: NALOXONE 0.4 MG/ML 1 ML VIAL IV PRN (15:18)
[2022-10-25] MEDS: metroNIDAZOLE-NS PMX 500 MG in SALINE 1 100ML.BAG IVPB SCH ×2 (15:33→21:34)
[2022-10-25 15:45] LABS: Basophils % (A) 0 %; Eosinophils # (A) 0.2 k/uL (0-0.7); Eosinophils % (A) 3 %; HCT 36.6 % (34.0-46.0); HGB 12.4 gm/dL (11.4-16.0); Lymphocytes % (A) 15 %; MCH 31.6 pg (25.0-35.0); MCV 93.1 fL (80.0-100.0); Mean Platelet Volume 7.3; Monocytes # (A) 0.4 k/uL (0-1.0); Monocytes % (A) 6 %; Neutrophils # (A) 4.9 k/uL (1.3-7.7); Neutrophils % (A) 75 %; Platelet Count 264 k/uL (150-450); RBC 3.93 m/uL (3.80-5.40); WBC 6.6 k/uL (3.8-10.6)
[2022-10-25 16:04] LABS: ALT 16 U/L (4-34); AST 22 U/L (14-36); African American GFR (CKD) >90 (>60 ml/min/1.73 sqM); Alkaline Phosphatase 99 U/L (38-126); Anion Gap 5 mmol/L; Blood Urea Nitrogen 12 mg/dL (7-17); Calcium 8.9 mg/dL (8.4-10.2); Carbon Dioxide 28 mmol/L (22-30); Chloride 103 mmol/L (98-107); Glucose 89 mg/dL (74-99); Non-African American GFR(CKD) >90 (>60 ml/min/1.73 sqM); Potassium 3.8 mmol/L (3.5-5.1); Sodium 136 mmol/L (137-145); Total Bilirubin 0.8 mg/dL (0.2-1.3); Total Protein 6.2 g/dL (6.3-8.2)
[2022-10-25] MEDS ORDERED: HYDROmorphone 0.5 MG/0.5 ML SYRINGE IVP PRN (17:26)
[2022-10-25] MEDS: PIPERACILLIN-TAZOBACTAM 3.375 GM in SODIUM CHLORIDE 0.9% 100 ML IVPB SCH (18:28)
[2022-10-25] MEDS: ENOXAPARIN 40 MG/0.4 ML SYRINGE SQ SCH (18:29)
[2022-10-25] MEDS: SYMBICORT 80-4.5 MCG INHALER INHALATION SCH (20:07)
[2022-10-25] MEDS ORDERED: HEPARIN SODIUM,PORCINE/PF 5,000 UNIT/0.5 ML SYRINGE SQ SCH (21:00)
[2022-10-25] MEDS: amLODIPine 10 MG TAB PO SCH (21:33)
[2022-10-25] MEDS: NORTRIPTYLINE 25 MG CAP PO SCH (21:33)
[2022-10-25] MEDS: lisinopriL 10 MG TAB PO SCH (21:33)
[2022-10-25] MEDS: HYDROcodone/APAP 7.5-325MG 1 EACH TAB PO SCH ×2 (21:38→21:45)
[2022-10-25] MEDS: clonazePAM 1 MG TAB PO PRN (21:47)
[2022-10-26] MEDS: PIPERACILLIN-TAZOBACTAM 3.375 GM in SODIUM CHLORIDE 0.9% 100 ML IVPB SCH ×4 (00:16→22:56)
--- NOTE | 2022-10-26 04:57 | HP ---
HISTORY AND PHYSICAL CHIEF COMPLAINT: Abdominal pain. HISTORY OF PRESENT ILLNESS: This is a 72-year-old woman with a past medical history of multiple medical problems including COPD, history of pulmonary embolism, history of IBS, was complaining of abdominal pain. The patient was [facility] to [facility]. CAT scan showed evidence of colitis in the ascending colon and ileocecal region also. The patient was admitted for evaluation and treatment surgical evaluation in progress. There is no history of fever, rigors, chills at this time. PAST MEDICAL HISTORY: Reviewed, include COPD, DJD, pulmonary embolism. The rest of the history and rest of the chart is also reviewed. HOME MEDICATIONS: Reviewed, include Klonopin, doses and rest of medications reviewed. ALLERGIES: Cipro. FAMILY HISTORY: DVT. SOCIAL HISTORY: Previous history of smoking. REVIEW OF SYSTEMS: 14-point review of systems is negative as mentioned earlier. PHYSICAL EXAMINATION: VITAL SIGNS: Pulse is 75, blood pressure 131/60, and respirations 16. HEENT: Conjunctivae normal. bases. No rhonchi, no crackles. ABDOMEN: Soft, obese, mild diffuse tenderness especially on the right side. SKIN: No ulcers. JOINTS: ntd LAB STUDIES: CBC within normal limits. ASSESSMENT: 1. Acute colitis. 2. Acute abdominal pain. 3. Chronic obstructive pulmonary disease. 4. Hypertension. 5. History of pulmonary embolism. RECOMMENDATIONS AND DISCUSSION: In this 72-year-old woman who presented with multiple complex medical issues, we will monitor the patient closely. I would recommend empiric antibiotics and resume the home medications. Surgical evaluation. DVT prophylaxis. Prognosis guarded because of multiple complex medical issues. Further recommendations to follow. See orders for further details. CAT scan report reviewed. Repeat labs in the morning. MMODL / IJN: [id number] / MTDD
[2022-10-26] MEDS: PANTOPRAZOLE 40 MG TABLET PO SCH (05:53)
[2022-10-26] MEDS: SYMBICORT 80-4.5 MCG INHALER INHALATION SCH ×2 (08:35→21:16)
[2022-10-26 08:48] LABS: Basophils # (A) 0.04 X 10*3/uL (0.00-0.10); Basophils % (A) 0.7 %; Eosinophils % (A) 3.5 %; HCT 37.5 % (37.2-46.3); HGB 11.9 g/dL (12.0-15.0); Immature Grans, Automated 0.5 %; Lymphocytes # (A) 1.16 X 10*3/uL (0.90-5.00); Lymphocytes % (A) 20.3 %; MCH 31.2 pg (27.0-32.0); MCHC 31.7 g/dL (32.0-37.0); MCV 98.4 fL (80.0-97.0); Mean Platelet Volume 9.8 fL (9.5-12.2); Monocytes # (A) 0.58 X 10*3/uL (0.20-1.00); Monocytes % (A) 10.1 %; NRBC Per 100 WBC 0 /100 WBCS (0.0-0.0); Neutrophils # (A) 3.71 X 10*3/uL (1.80-7.70); Neutrophils % (A) 64.9 %; Platelet Count 273 X 10*3/uL (140-440); RBC 3.81 X 10*6/uL (4.10-5.20); RDW 13.5 % (11.5-14.5); WBC 5.72 X 10*3/uL (4.50-10.00)
[2022-10-26] MEDS ORDERED: cefTRIAXone IN SWFI 1,000 MG/10 ML SYRINGE IVP SCH (09:00)
[2022-10-26 09:07] LABS: African American GFR (CKD) 98.9 (60.0-200.0); Albumin/Globulin Ratio 2.35 (1.60-3.17); Anion Gap 10.3 mmol/L (10.00-18.00); BUN/Creat Ratio 15.43 Ratio (12.00-20.00); Blood Urea Nitrogen 10.8 mg/dL (9.0-27.0); Calcium 9.3 mg/dL (8.7-10.3); Carbon Dioxide 25.7 mmol/L (20.0-27.5); Globulin 1.7 g/dL (1.6-3.3); Non-African American GFR(CKD) 85.4 (60.0-200.0); Potassium 4.1 mmol/L (3.5-5.5); Total Bilirubin 0.5 mg/dL (0.30-1.20); Total Protein 5.7 g/dL (6.2-8.2)
[2022-10-26] MEDS: HYDROcodone/APAP 7.5-325MG 1 EACH TAB PO SCH ×3 (09:30→22:54)
[2022-10-26] MEDS: metroNIDAZOLE-NS PMX 500 MG in SALINE 1 100ML.BAG IVPB SCH ×2 (09:31→17:03)
[2022-10-26] MEDS: DULoxetine HCL 60 MG CAPSULE.DR PO SCH (09:31)
[2022-10-26] MEDS: lisinopriL 10 MG TAB PO SCH ×2 (09:31→22:54)
[2022-10-26] MEDS: ENOXAPARIN 40 MG/0.4 ML SYRINGE SQ SCH (09:32)
--- NOTE | 2022-10-26 16:32 | P.GSCN ---
History of Present Illness Consult date: 10/26/22 Reason for Consult: Abdominal pain right lower quadrant History of present illness: Patient presented with right lower quadrant pain 8 out of 10 and had a CAT scan showed inflammation around the colon and terminal ileum but the appendix was not seen this was not classic appendicitis. The patient has a normal white blood cell count and was admitted to the hospital. On exam she has tenderness in the right lower quadrant with focal rebound with positive Rovsing sign. She states that she is much better today and we will be conservative increase her diet and try and control her pain she increases her white blood cell count tomorrow or has worsening physical exam than I would do a laparoscopy. She has IBD but has never had anything like this. Perhaps we will repeat the CAT scan if her exam is in question. Review of Systems - Constitutional Reports as per HPI - EENT Ears, nose, mouth and throat: Reports as per HPI - Cardiovascular Reports as per HPI - Respiratory Reports as per HPI - Gastrointestinal Reports as per HPI - Genitourinary Genitourinary: Reports as per HPI Menstruation: Reports as per HPI - Musculoskeletal Reports as per HPI - Integumentary Reports as per HPI - Neurological Reports as per HPI Past Medical History Past Medical History: COPD, Eye Disorder, Hypertension, Osteoarthritis (OA), Pulmonary Embolus (PE) Additional Past Medical History / Comment(s): glaucoma History of Any Multi-Drug Resistant Organisms: None Reported Past Surgical History: Back Surgery, Heart Catheterization, Hysterectomy, Joint Replacement Additional Past Surgical History / Comment(s): back fusion, benito knee replacement, benito shoulder replacement, sinus sx Past Anesthesia/Blood Transfusion Reactions: Previous Problems w/ Anesthesia Additional Past Anesthesia/Blood Transfusion Reaction / Comm: states with one sx "was hard to wake up" Past Psychological History: Anxiety, Depression Smoking Status: Former smoker Past Alcohol Use History: None Reported Additional Past Alcohol Use History / Comment(s): quit smoking 1985, smoked 1ppd from 1968 Past Drug Use History: None Reported - Past Family History Mother Family Medical History: Deep Vein Thrombosis (DVT) Medications and Allergies Home Medications Medication Instructions Recorded Confirmed Type ARIPiprazole [Abilify] 20 mg PO DAILY 01/04/21 10/25/22 History Nortriptyline HCl [Pamelor] 75 mg PO HS 01/04/21 10/25/22 History Vits A,C,E/Lutein/Minerals 1 each PO DAILY 01/04/21 10/25/22 History [Ocuvite with Lutein Tablet] amLODIPine [Norvasc] 10 mg PO HS 01/04/21 10/25/22 History clonazePAM [KlonoPIN] 1 mg PO HS PRN 01/04/21 10/25/22 History lisinopriL [Prinivil] 10 mg PO BID 01/11/21 10/25/22 History DULoxetine HCL [Cymbalta] 60 mg PO DAILY 10/25/22 10/25/22 History Fluticasone Propion/Salmeterol 1 puff INHALATION RT-BID 10/25/22 10/25/22 History [Fluticasone-Salmeterol 250-50] HYDROcodone/APAP 7.5-325MG [[place] 1 tab PO TID 10/25/22 10/25/22 History 7.5-325] Omeprazole [PriLOSEC] 20 mg PO DAILY 10/25/22 10/25/22 History Allergies Allergy/AdvReac Type Severity Reaction Status Date / Time ciprofloxacin [From Cipro] Allergy Rash/Hives Verified 10/25/22 14:09 Surgical - Exam Vital Signs Temp Pulse Resp BP Pulse Ox 98.4 F 75 18 122/60 98 10/25/22 10:34 10/25/22 10:34 10/25/22 10:34 10/25/22 10:34 10/25/22 10:34 - General well developed, well nourished, no distress - Eyes PERRL, normal ocular movement - ENT normal pinna, normal nares, normal mucosa, no hearing loss - Neck no masses, no bruits, trachea midline - Respiratory normal expansion, normal respiratory effort - Abdomen Abdomen: soft, tender, rebound - Genitourinary normal external genitalia, normal perineum - Rectum Rectum: normal sphincter tone, no hemorrhoids, no tenderness - Integumentary no rash, no growths - Neurologic normal coordination, normal sensation, disoriented - Psychiatric oriented to time, oriented to person, oriented to place Results - Labs 10/26/22 05:16 10/26/22 05:16 Abnormal Lab Results - Last 24 Hours (Table) 10/26/22 10/26/22 Range/Units 05:16 05:16 RBC 3.81 L (4.10-5.20) X 10*6/uL Hgb 11.9 L (12.0-15.0) g/dL MCV 98.4 H (80.0-97.0) fL MCHC 31.7 L (32.0-37.0) g/dL Total Protein 5.7 L (6.2-8.2) g/dL Diabetes panel 10/26/22 Range/Units 05:16 Sodium 139 (135-145) mmol/L Potassium 4.1 (3.5-5.5) mmol/L Chloride 103 (96-109) mmol/L Carbon Dioxide 25.7 (20.0-27.5) mmol/L BUN 10.8 (9.0-27.0) mg/dL Creatinine 0.7 (0.6-1.5) mg/dL Glucose 105 (70-110) mg/dL Calcium 9.3 (8.7-10.3) mg/dL AST 16 (13-35) U/L ALT 14 (8-44) U/L Alkaline Phosphatase 106 (41-126) U/L Total Protein 5.7 L (6.2-8.2) g/dL Albumin 4.0 (3.8-4.9) g/dL Calcium panel 10/26/22 Range/Units 05:16 Calcium 9.3 (8.7-10.3) mg/dL Albumin 4.0 (3.8-4.9) g/dL Pituitary panel 10/26/22 Range/Units 05:16 Sodium 139 (135-145) mmol/L Potassium 4.1 (3.5-5.5) mmol/L Chloride 103 (96-109) mmol/L Carbon Dioxide 25.7 (20.0-27.5) mmol/L BUN 10.8 (9.0-27.0) mg/dL Creatinine 0.7 (0.6-1.5) mg/dL Glucose 105 (70-110) mg/dL Calcium 9.3 (8.7-10.3) mg/dL Adrenal panel 10/26/22 Range/Units 05:16 Sodium 139 (135-145) mmol/L Potassium 4.1 (3.5-5.5) mmol/L Chloride 103 (96-109) mmol/L Carbon Dioxide 25.7 (20.0-27.5) mmol/L BUN 10.8 (9.0-27.0) mg/dL Creatinine 0.7 (0.6-1.5) mg/dL Glucose 105 (70-110) mg/dL Calcium 9.3 (8.7-10.3) mg/dL Total Bilirubin 0.50 (0.30-1.20) mg/dL AST 16 (13-35) U/L ALT 14 (8-44) U/L Alkaline Phosphatase 106 (41-126) U/L Total Protein 5.7 L (6.2-8.2) g/dL Albumin 4.0 (3.8-4.9) g/dL Assessment and Plan Assessment: Inflammatory changes about the terminal ileum and cecum with improving clinical exam over the past 12 hours on antibiotics, IV fluids and bowel rest. This could be appendicitis and we discussed this. I will reevaluate her tomorrow once October 27 4 blood cell count is under 6 and she appears stable but her exam is concerning for possible appendicitis. Plan: Continue IV fluids and antibiotics. Reevaluation tomorrow serial exams. Okay to increase diet to full liquids but keep her nothing by mouth at midnight. Time with Patient: Greater than 30
--- NOTE | 2022-10-26 20:15 | P.CONS ---
History of Present Illness - Reason for Consult Consult date: 10/26/22 - History of Present Illness Patient is a 72-year-old female with past medical history significant for hypertension, PE, osteoarthritis and COPD, presented to the [facility] initially for evaluation of abdominal pain that started the day before presentation hospital of her breakfast patient. Has been mostly in the right lower quadrant area patient described the pain to be more of a shop in nature and intensity was almost 10 out of 10 by the time the patient presented to the hospital with no significant radiation of the pain patient did have nausea and episode of vomiting fewTimes but denies having any diarrhea rather patient is constipated, patient denies high-grade fever however did have some chills patient did have a normal white count of 7.6 patient did have a [address] of abdominal pelvis which did shows inflammatory changes with wall thickening involving the proximal ascending: With some inflammatory changes around the ileocecal region but appendix was not visualized patient was subsequently transferred to [facility] for surgical evaluation patient has been started on Zosyn and infectious disease was consulted for further management of antibiotic therapy, patient did mention improvement in her symptoms as for his abdominal pain is concerned chills the patient has been transferred here Past Medical History Past Medical History: COPD, Eye Disorder, Hypertension, Osteoarthritis (OA), Pulmonary Embolus (PE) Additional Past Medical History / Comment(s): glaucoma History of Any Multi-Drug Resistant Organisms: None Reported Past Surgical History: Back Surgery, Heart Catheterization, Hysterectomy, Joint Replacement Additional Past Surgical History / Comment(s): back fusion, benito knee replacement, benito shoulder replacement, sinus sx Past Anesthesia/Blood Transfusion Reactions: Previous Problems w/ Anesthesia Additional Past Anesthesia/Blood Transfusion Reaction / Comm: states with one sx "was hard to wake up" Past Psychological History: Anxiety, Depression Smoking Status: Former smoker Past Alcohol Use History: None Reported Additional Past Alcohol Use History / Comment(s): quit smoking 1985, smoked 1ppd from 1968 Past Drug Use History: None Reported - Past Family History Mother Family Medical History: Deep Vein Thrombosis (DVT) Medications and Allergies Home Medications Medication Instructions Recorded Confirmed Type ARIPiprazole [Abilify] 20 mg PO DAILY 01/04/21 10/25/22 History Nortriptyline HCl [Pamelor] 75 mg PO HS 01/04/21 10/25/22 History Vits A,C,E/Lutein/Minerals 1 each PO DAILY 01/04/21 10/25/22 History [Ocuvite with Lutein Tablet] amLODIPine [Norvasc] 10 mg PO HS 01/04/21 10/25/22 History clonazePAM [KlonoPIN] 1 mg PO HS PRN 01/04/21 10/25/22 History lisinopriL [Prinivil] 10 mg PO BID 01/11/21 10/25/22 History DULoxetine HCL [Cymbalta] 60 mg PO DAILY 10/25/22 10/25/22 History Fluticasone Propion/Salmeterol 1 puff INHALATION RT-BID 10/25/22 10/25/22 History [Fluticasone-Salmeterol 250-50] HYDROcodone/APAP 7.5-325MG [Rogers 1 tab PO TID 10/25/22 10/25/22 History 7.5-325] Omeprazole [PriLOSEC] 20 mg PO DAILY 10/25/22 10/25/22 History Allergies Allergy/AdvReac Type Severity Reaction Status Date / Time ciprofloxacin [From Cipro] Allergy Rash/Hives Verified 10/25/22 14:09 Physical Exam Vitals: Vital Signs Temp Pulse Pulse Resp BP BP Pulse Ox 10/26/22 08:36 93 L 10/26/22 07:00 97.3 F L 67 17 100/64 97 10/26/22 04:01 97.5 F L 65 18 101/63 94 L 10/25/22 20:09 92 L 10/25/22 19:55 98.6 F 49 L 17 105/62 95 10/25/22 16:50 98.1 F 83 18 137/78 98 10/25/22 16:18 75 18 119/61 98 10/25/22 15:15 98.8 F 75 16 131/69 97 Intake and Output 10/25/22 10/26/22 10/26/22 22:59 06:59 14:59 Output Total 700 Balance -700 Output: Urine 700 Straight 700 Other: # Voids 1 2 Weight 90.718 kg Results CBC & Chem 7: 10/26/22 05:16 10/26/22 05:16 Labs: Abnormal Lab Results - Last 24 Hours (Table) 10/25/22 10/26/22 10/26/22 Range/Units 15:12 05:16 05:16 RBC 3.81 L (4.10-5.20) X 10*6/uL Hgb 11.9 L (12.0-15.0) g/dL MCV 98.4 H (80.0-97.0) fL MCHC 31.7 L (32.0-37.0) g/dL Sodium 136 L (137-145) mmol/L Total Protein 6.2 L 5.7 L (6.3-8.2) g/dL Assessment and Plan Plan: 1patient is in the hospital with abdominal pain in this patient who did have evidence of tenderness to the right lower quadrant and suprapubic area and this patient with abdominal CT concerning for possible acute appendicitis and will need to cover for the enteric gram-negative both anaerobes and anaerobes 2-patient with the Cipro ALLERGY that would limit number of antibiotic safety use 3-patient to continue with the Zosyn however discontinue Flagyl 4-await surgical evaluation We will follow on clinical condition and cultures to further adjust medication if needed Thank you for this consultation will follow this patient with you Time with Patient: Greater than 30
--- NOTE | 2022-10-26 21:41 | PN ---
PROGRESS NOTE DATE OF SERVICE: 10/26/2022 SUBJECTIVE: This is a 72-year-old woman, who was admitted with acute extensive colitis, on IV antibiotics. No chest pain. No palpitation. No fever. OBJECTIVE: VITAL SIGNS: Pulse is 68, blood pressure 111/60, respirations 17. CHEST: Clear to auscultation. CARDIOVASCULAR: S1 and S2. ABDOMEN: Soft. Mild diffuse tenderness in the right lower quadrant. LABORATORY DATA: Reviewed. ASSESSMENT: 1. Acute colitis, right side. 2. Acute abdominal pain. 3. Chronic obstructive pulmonary disease. 4. Hypertension. 5. History of pulmonary embolism. 6. Multiple medical issues. RECOMMENDATIONS: This is a 72-year-old woman, presented with multiple complex medical issues. We will monitor the patient closely. Continue the broad-spectrum IV antibiotics. Repeat labs in the morning. Otherwise, symptomatic treatment provided. Prognosis is guarded. Further recommendations to follow. MMODL / IJN: [id number] /
[2022-10-26] MEDS: NORTRIPTYLINE 25 MG CAP PO SCH (22:55)
[2022-10-26] MEDS: clonazePAM 1 MG TAB PO PRN (22:55)
[2022-10-26] MEDS: amLODIPine 10 MG TAB PO SCH (22:55)
[2022-10-27] MEDS: PANTOPRAZOLE 40 MG TABLET PO SCH (05:26)
[2022-10-27] MEDS: SYMBICORT 80-4.5 MCG INHALER INHALATION SCH ×2 (08:20→20:31)
[2022-10-27] MEDS: DULoxetine HCL 60 MG CAPSULE.DR PO SCH (08:26)
[2022-10-27] MEDS: PIPERACILLIN-TAZOBACTAM 3.375 GM in SODIUM CHLORIDE 0.9% 100 ML IVPB SCH ×3 (08:26→23:47)
[2022-10-27] MEDS: lisinopriL 10 MG TAB PO SCH ×2 (08:26→20:20)
[2022-10-27] MEDS: HYDROcodone/APAP 7.5-325MG 1 EACH TAB PO SCH ×3 (08:27→22:14)
[2022-10-27] MEDS: ENOXAPARIN 40 MG/0.4 ML SYRINGE SQ SCH (08:27)
[2022-10-27 10:22] LABS: Basophils # (A) 0.03 X 10*3/uL (0.00-0.10); Eosinophils # (A) 0.21 X 10*3/uL (0.04-0.35); Eosinophils % (A) 6.9 %; HCT 32.2 % (37.2-46.3); HGB 10.3 g/dL (12.0-15.0); Immature Grans, Automated 0.7 %; Lymphocytes # (A) 0.98 X 10*3/uL (0.90-5.00); Lymphocytes % (A) 32.3 %; MCH 31.2 pg (27.0-32.0); MCV 97.6 fL (80.0-97.0); Mean Platelet Volume 9.8 fL (9.5-12.2); Monocytes # (A) 0.38 X 10*3/uL (0.20-1.00); Monocytes % (A) 12.5 %; NRBC Per 100 WBC 0 /100 WBCS (0.0-0.0); Neutrophils # (A) 1.41 X 10*3/uL (1.80-7.70); Neutrophils % (A) 46.6 %; Platelet Count 249 X 10*3/uL (140-440); RDW 13.3 % (11.5-14.5); WBC 3.03 X 10*3/uL (4.50-10.00)
[2022-10-27 10:42] LABS: African American GFR (CKD) 97.2 (60.0-200.0); BUN/Creat Ratio 11.65 Ratio (12.00-20.00); Blood Urea Nitrogen 8.3 mg/dL (9.0-27.0); Calcium 8.8 mg/dL (8.7-10.3); Carbon Dioxide 26.3 mmol/L (20.0-27.5); Non-African American GFR(CKD) 83.9 (60.0-200.0)
--- NOTE | 2022-10-27 16:07 | P.PN ---
Subjective Progress Note Date: 10/27/22 Principal diagnosis: Possible appendicitis Patient is a 72-year-old female with past medical history significant for hypertension, PE, osteoarthritis and COPD, presented to the [facility] initially for evaluation of abdominal pain, patient did have a CT of abdominal pelvis at outside facility today shows inflammatory changes with wall thickening involving the proximal ascending colon and around the ileocecal region and it was not visualized patient was subsequently transferred to [facility] for surgical evaluation. On today's evaluation that is 10/27/2022, the patient denies having any fever or chills, patient abdominal pain has almost resolved, the patient has been started on a diet by general surgery the patient has been tolerating no nausea no vomiting no chest pain shortness of breath or cough Objective - Vital Signs Vital signs: Vital Signs Temp 97.5 F L 10/27/22 07:00 Pulse 70 10/27/22 07:00 Resp 18 10/27/22 07:00 BP 129/73 10/27/22 07:00 Pulse Ox 97 10/27/22 07:00 FiO2 Intake & Output 10/26/22 10/27/22 10/27/22 18:59 06:59 18:59 Intake Total 1456 298 Output Total 700 Balance 756 298 Intake: Oral 1456 298 Output: Urine 700 Straight 700 Other: # Voids 2 1 2 - Exam GENERAL DESCRIPTION: An elderly female lying in bed in no distress RESPIRATORY SYSTEM: Unlabored breathing , decreased breath sounds at bases HEART: S1 S2 regular rate and rhythm , ABDOMEN: Soft , mild distention but no significant tenderness EXTREMITIES: No edema feet - Labs CBC & Chem 7: 10/27/22 06:19 10/27/22 06:19 Labs: Abnormal Lab Results - Last 24 Hours (Table) 10/27/22 10/27/22 Range/Units 06:19 06:19 WBC 3.03 L (4.50-10.00) X 10*3/uL RBC 3.30 L (4.10-5.20) X 10*6/uL Hgb 10.3 L (12.0-15.0) g/dL Hct 32.2 L (37.2-46.3) % MCV 97.6 H (80.0-97.0) fL Neutrophils # 1.41 L (1.80-7.70) X 10*3/uL BUN 8.3 L (9.0-27.0) mg/dL BUN/Creatinine Ratio 11.65 L (12.00-20.00) Ratio Microbiology - Last 24 Hours (Table) 10/25/22 15:26 Blood Culture - Preliminary Blood No Growth after 24 hours 10/25/22 15:12 Blood Culture - Preliminary Blood No Growth after 24 hours Assessment and Plan (1) Appendicitis Current Visit: Yes Status: Acute Code(s): K37 - UNSPECIFIED APPENDICITIS SNOMED Code(s): 31644626 Plan: 1patient is in the hospital with abdominal pain in this patient who did have evidence of tenderness to the right lower quadrant and suprapubic area and this patient with abdominal CT concerning for possible acute appendicitis and will need to cover for the enteric gram-negative both anaerobes and anaerobes 2-patient with the Cipro ALLERGY that would limit number of antibiotic safety use 3-patient seemed to have shown critical improvement and will continue with the Zosyn , may benefit from repeat CT to make sure patient is not developing any abscess Time with Patient: Less than 30
--- NOTE | 2022-10-27 16:47 | P.PN ---
Subjective Progress Note Date: 10/27/22 Principal diagnosis: right lower quadrant pain post colitis versus appendicitis versus other patient was seen yesterday and she is making some improvements her exam today is slowly improving and she appears to be responding to antibiotics. White blood cell count is 3. I would continue monitoring her and repeat CAT scan 10/28/2022. Objective - Vital Signs Vital signs: Vital Signs Temp 97.5 F L 10/27/22 14:01 Pulse 65 10/27/22 14:01 Resp 18 10/27/22 14:01 BP 109/58 10/27/22 14:01 Pulse Ox 98 10/27/22 14:01 FiO2 Intake & Output 10/26/22 10/27/22 10/27/22 18:59 06:59 18:59 Intake Total 1456 832 Output Total 700 Balance 756 832 Intake: Oral 1456 832 Output: Urine 700 Straight 700 Other: # Voids 2 1 2 - Constitutional General appearance: Present: average body habitus - EENT Eyes: Present: abnormal pupil ENT: Present: hard of hearing - Neck Neck: Present: normal ROM - Respiratory Respiratory: bilateral: CTA - Cardiovascular Rhythm: regular - Gastrointestinal Gastrointestinal Comment(s): patient has tenderness right lower quadrant that is slowly improving. General gastrointestinal: Present: tenderness Localized gastrointestinal: rebound: RLQ (mildwith slow improvement) - Neurologic Neurologic: Present: CNII-XII intact - Musculoskeletal Musculoskeletal: Present: gait normal - Psychiatric Psychiatric: Present: A&O x's 3 - Labs CBC & Chem 7: 10/27/22 06:19 10/27/22 06:19 Labs: Abnormal Lab Results - Last 24 Hours (Table) 10/27/22 10/27/22 Range/Units 06:19 06:19 WBC 3.03 L (4.50-10.00) X 10*3/uL RBC 3.30 L (4.10-5.20) X 10*6/uL Hgb 10.3 L (12.0-15.0) g/dL Hct 32.2 L (37.2-46.3) % MCV 97.6 H (80.0-97.0) fL Neutrophils # 1.41 L (1.80-7.70) X 10*3/uL BUN 8.3 L (9.0-27.0) mg/dL BUN/Creatinine Ratio 11.65 L (12.00-20.00) Ratio Microbiology - Last 24 Hours (Table) 10/25/22 15:26 Blood Culture - Preliminary Blood No Growth after 24 hours 10/25/22 15:12 Blood Culture - Preliminary Blood No Growth after 24 hours Assessment and Plan Assessment: right lower quadrant pain which is improving with IV hydration and antibiotics. Possible focal colitis versus appendicitis but the appendix has not been seen and she is responding to conservative treatment. Some early appendicitis can be treated with IV antibiotics alone and is long as she is clinically improving and I think we could continue in this direction. If she does not totally improve I would repeat the CAT scan tomorrow and then consider laparoscopy as an extended physical exam and possible appendectomy tomorrow if needed. Plan: continue medical treatment and repeat CAT scan tomorrow. Based on her clinical progress and her repeat CAT scan she may require laparoscopy as an extended physical examination and possible appendectomy if indicated.
[2022-10-27] MEDS: amLODIPine 10 MG TAB PO SCH (20:20)
[2022-10-27] MEDS: NORTRIPTYLINE 25 MG CAP PO SCH (20:20)
[2022-10-28 04:10] VITALS: RESP 17
[2022-10-28] MEDS: PANTOPRAZOLE 40 MG TABLET PO SCH (05:28)
--- NOTE | 2022-10-28 08:09 | PN ---
PROGRESS NOTE DATE OF SERVICE: 10/27/2022 SUBJECTIVE: This is a 72-year-old woman, who was admitted with acute colitis, is being closely monitored. No chest pain. No palpitations. No fever. OBJECTIVE: VITAL SIGNS: Pulse is 65, blood pressure is 109/50, respirations 18. HEENT: Conjunctivae normal. CARDIOVASCULAR: S1, S2. RESPIRATORY: Clear. ABDOMEN: Soft. Minimal tenderness on the right lower quadrant. LABORATORY DATA: Reviewed. ASSESSMENT: 1. Acute colitis, right side, on IV antibiotics. 2. Acute abdominal pain. 3. Chronic obstructive pulmonary disease. 4. Hypertension. 5. History of pulmonary embolism. 6. Multiple medical issues. RECOMMENDATIONS: Recommend to continue current medications, continue with IV antibiotics. Diet has been increased. Otherwise, probably discharge in the next 24 hours. MMODL / IJN: [id number] /
[2022-10-28] MEDS: PIPERACILLIN-TAZOBACTAM 3.375 GM in SODIUM CHLORIDE 0.9% 100 ML IVPB SCH (08:47)
[2022-10-28] MEDS: ENOXAPARIN 40 MG/0.4 ML SYRINGE SQ SCH (08:47)
[2022-10-28] MEDS: DULoxetine HCL 60 MG CAPSULE.DR PO SCH (08:47)
[2022-10-28] MEDS: lisinopriL 10 MG TAB PO SCH (08:47)
[2022-10-28] MEDS: HYDROcodone/APAP 7.5-325MG 1 EACH TAB PO SCH (08:50)
[2022-10-28] MEDS: SYMBICORT 80-4.5 MCG INHALER INHALATION SCH (09:53)
[2022-10-28] MEDS: IOPAMIDOL CONTRAST (ORAL USE) VIAL PO PRN ×2 (10:50→12:04)
--- NOTE | 2022-10-28 12:41 | P.PN ---
Subjective Progress Note Date: 10/28/22 Principal diagnosis: Abdominal pain Patient is a 72-year-old female transferred from [facility] with abdominal pain. A computed tomography scan there showed some inflammatory changes around the ileocecal junction and ascending colon. The patient was admitted and given IV antibiotics. She's feeling better today. Currently awaiting a repeat computed tomography scan. She is hungry. No nausea. Objective - Vital Signs Vital signs: Vital Signs Temp 97.9 F 10/28/22 07:00 Pulse 72 10/28/22 07:00 Resp 17 10/28/22 07:00 BP 149/74 10/28/22 07:00 Pulse Ox 98 10/28/22 09:53 FiO2 21 10/28/22 09:53 Intake & Output 10/27/22 10/28/22 10/28/22 18:59 06:59 18:59 Intake Total 832 534 Balance 832 534 Intake: Oral 832 534 Other: Voiding Method Toilet # Voids 2 2 1 # Bowel Movements 1 - Constitutional General appearance: Present: cooperative, no acute distress - Respiratory Respiratory: bilateral: CTA - Gastrointestinal General gastrointestinal: Present: normal bowel sounds, soft. Absent: tenderness (No guarding or rebound. Patient states feels much better than on admission) - Labs CBC & Chem 7: 10/27/22 06:19 10/27/22 06:19 Labs: Microbiology - Last 24 Hours (Table) 10/25/22 15:26 Blood Culture - Preliminary Blood No Growth after 48 hours 10/25/22 15:12 Blood Culture - Preliminary Blood No Growth after 48 hours Assessment and Plan (1) Colitis Current Visit: Yes Status: Acute Code(s): K52.9 - NONINFECTIVE GASTROENTERITIS AND COLITIS, UNSPECIFIED SNOMED Code(s): 40380870 (2) RLQ abdominal pain Current Visit: Yes Status: Acute Code(s): R10.31 - RIGHT LOWER QUADRANT PAIN SNOMED Code(s): 665123797 Plan: Clinically the patient is much improved. She's had no fevers. Going for a CT this afternoon. Can advance the diet as long as nothing significant shows up on the computed tomography scan. Currently nonsurgical. If she is tolerating a diet she could be discharged on antibiotics fairly soon.
--- NOTE | 2022-10-28 12:44 | P.PN ---
Subjective Progress Note Date: 10/28/22 Principal diagnosis: Possible appendicitis Patient is a 72-year-old female with past medical history significant for hypertension, PE, osteoarthritis and COPD, presented to the [facility] initially for evaluation of abdominal pain, patient did have a CT of abdominal pelvis at outside facility today shows inflammatory changes with wall thickening involving the proximal ascending colon and around the ileocecal region and it was not visualized patient was subsequently transferred to [facility] for surgical evaluation. On today's evaluation that is 10/28/2022, the patient remains to be afebrile, patient denies any nausea or vomiting and abdominal pain has decreased intensity, the patient denies any chest pain shortness of breath or cough overall feeling better Objective - Vital Signs Vital signs: Vital Signs Temp 97.9 F 10/28/22 07:00 Pulse 72 10/28/22 07:00 Resp 17 10/28/22 07:00 BP 149/74 10/28/22 07:00 Pulse Ox 98 10/28/22 09:53 FiO2 21 10/28/22 09:53 Intake & Output 10/27/22 10/28/22 10/28/22 18:59 06:59 18:59 Intake Total 832 534 Balance 832 534 Intake: Oral 832 534 Other: Voiding Method Toilet # Voids 2 2 1 # Bowel Movements 1 - Exam GENERAL DESCRIPTION: An elderly female lying in bed in no distress RESPIRATORY SYSTEM: Unlabored breathing , decreased breath sounds at bases HEART: S1 S2 regular rate and rhythm , ABDOMEN: Soft , mild distention but no significant tenderness EXTREMITIES: No edema feet - Labs CBC & Chem 7: 10/27/22 06:19 10/27/22 06:19 Labs: Abnormal Lab Results - Last 24 Hours (Table) 10/27/22 Range/Units 06:19 BUN 8.3 L (9.0-27.0) mg/dL BUN/Creatinine Ratio 11.65 L (12.00-20.00) Ratio Microbiology - Last 24 Hours (Table) 10/25/22 15:26 Blood Culture - Preliminary Blood No Growth after 48 hours 10/25/22 15:12 Blood Culture - Preliminary Blood No Growth after 48 hours Assessment and Plan (1) Appendicitis Current Visit: Yes Status: Acute Code(s): K37 - UNSPECIFIED APPENDICITIS SNOMED Code(s): 76882544 Plan: 1patient is in the hospital with abdominal pain in this patient who did have evidence of tenderness to the right lower quadrant and suprapubic area and this patient with abdominal CT concerning for possible acute appendicitis and will need to cover for the enteric gram-negative both anaerobes and anaerobes 2-patient with the Cipro ALLERGY that would limit number of antibiotic safety use 3-patient seemed to have shown critical improvement and will continue with the Zosyn , we will repeat his CT of abdominal pelvis for follow-up and monitor clinical course closely Time with Patient: Less than 30
--- NOTE | 2022-10-28 14:06 | CT ---
EXAMINATION TYPE: CT abdomen pelvis wo con DATE OF EXAM: 10/28/2022 HISTORY: Right lower quadrant abdominal pain. Possible appendicitis and abscess. CT DLP: 990.8 mGycm. Automated Exposure Control for Dose Reduction was Utilized. TECHNIQUE: CT scan of the abdomen and pelvis is performed with oral but without IV contrast. COMPARISON: Outside CT 3 days earlier FINDINGS: Within the limitations of a non-contrast study, the following observations are made. LUNG BASES: Calcification level of the mitral valve is redemonstrated. Mild bibasilar linear scarring redemonstrated. LIVER/GB: No significant abnormality is appreciated. PANCREAS: Mild to moderate fat replaced atrophy redemonstrated. SPLEEN: No significant abnormality is seen. ADRENALS: No significant abnormality is seen. KIDNEYS: No renal calculi seen bilaterally. There is new Mild right-sided pyelocaliectasis on current study without hydroureter. BOWEL: Oral contrast has not reached the level of terminal ileum making evaluation of distal bowel sl ightly suboptimal. Marked improvement in abnormal wall thickening at level of terminal ileum. Fecal f illed terminal ileum seen current study coronal image 46 for reference. Appendix likely surgically ab sent coronal image 43. No significant fat stranding at base of cecum. No suspicious small or large jamshid wel dilatation. GENITAL ORGANS: Uterus surgically absent. Surgical clip in the pelvic cul-de-sac with streak artifact is redemonstrated axial image 114. LYMPH NODES: No new greater than 1cm abdominal or pelvic lymph nodes are appreciated. OSSEOUS STRUCTURES: Posterior bilateral L3-L5 interpedicular rods and screws are redemonstrated. Ther e is grade 1 retrolisthesis L2 on L3 with severe disc space narrowing along with vacuum disc phenomen on and endplate sclerosis redemonstrated. Slight grade 1 anterolisthesis L4 on L5 is redemonstrated. Posterior decompression changes are again seen. OTHER: Small sized umbilical hernia containing fat is redemonstrated. Mild to moderate calcified plaq ue of the aorta extends into branch vessels. IMPRESSION: Marked improvement in abnormal wall thickening or inflammatory change involving the termi nal ileum. No new areas of acute inflammation identified. No free air. No well-formed fluid collectio n or abscess seen.
[2022-10-28 14:57] VITALS: BP 120/63; PULSE 73; TEMP 98
--- NOTE | 2022-10-29 22:35 | P.DS ---
Providers Date of admission: 10/27/22 16:52 Attending physician: Toan Richardson MD Consults: 10/25/22 15:18 Consult Physician Urgent Consulting Provider: Néstor Mariano Consult Reason/Comments: acute rlq pain, acute colitis Do you want consulting provider notified?: Already Contacted 10/25/22 17:31 Consult Physician Routine Consulting Provider: Erlinda Weston Consult Reason/Comments: colitis Do you want consulting provider notified?: Yes Primary care physician: [facility] Course: Final Diagnosis Acute colitis, right sided, improved with IV antibiotics no radiographic evidence for abscess Acute abdominal pain improved Chronic obstructive pulmonary disease without acute exacerbation Hypertension History of pulmonary embolism History of irritable bowel syndrome Full Code Discharge Disposition Patient is stable for discharge home. Recommended to increase diet as tolerated. Patient will continue course of oral antibiotics with Augmentin BID for 10 days. Recommended to see primary care provider in 1 to 2 days. Patient to follow up with surgery as needed. Recommend to repeat labs in 2 to 3 days. Continue all same home medications. Hospital Course This is a 72 year old female with medical history of COPD, hypertension, pulmonary embolism, glaucoma, heart catheterization, remote former smoker. Patient presents to the hospital with chief complaint of crampy right sided a bdominal pain. Pain seemed to have stored after eating and patient had an episode of emesis. Patient was transferred from [facility]. At outside hospital patient had normal white count. Had Abdominal CT which revealed inflammatory changes with wall thickening involving the proximal ascending colon with subtle surrounding inflammatory changes. There is short segment of wall thickening at the ileocecal junction. Appendix is not seen. Patient was give Flagyl and dilaudid and continued with significant abdominal pain and was transferred to [facility] for surgical evaluation. Patient was evaluated by general surgery and was given clear liquid diet and IV zosyn. Patient was monitored for 2 days and symptoms were improving. Blood culture is negative x 2. Patient had essentially unremarkable labs. Hemoglobin did drop to 10.3 with no evidence of acute GI bleeding, likely dilutional. Kidney function stable, clinically patient does not appear dehydrated. Infectious disease was consulted. She had diet advanced and repeat abdominal pelvis CT showing marked improvement in abnormal wall thickening at the level of the terminal ileum. Patient dose have some constipation noted however no suspicious small or large bowel obstruction. There are no new areas of acute inflammation identified and no free air. No well- formed fluid collection or abscess. Patient has been cleared for discharge home and will complete course of oral augmentin on discharge for 10 days. 10/28/2022 Patient is evaluated today sitting up in bed. Reports improvement in abdominal pain and currently is nontender to palpation. She did have bowel movement x 2 today. Currently denying chest pain, no shortness of breath, no nausea, vomiting, or diarrhea. Patient is tolerated advanced diet. Her lungs are clear, S1 S2 auscultated. She is alert x 3 and focal neurological exam is negative. Labs remain unremarkable. Patient remains afebrile, heart rate 73, blood pressure 120/63, 99% on room air. Stable for discharge with above mentioned recommendations. Please see medication reconciliation for a list of current medication. Thank you for allowing us to participate in the care of this patient. The impression and plan of care has been dictated by Jeaneth Kelsey, Nurse Practitioner as directed. Dr. Kirby MD I have performed a history and physical examination and medical decision making of this patient, discussed the same with the dictator, and agree with the dictators assessment and plan as written, documented as a scribe. Based on total visit time, I have performed more than 50% of this visit. Patient Condition at Discharge: Stable Plan - Discharge Summary Discharge Rx Participant: Yes New Discharge Prescriptions: New Amoxic-Pot Clav 875-125Mg [Augmentin 875-125] 1 tab PO BID 10 Days #20 tab Continue Nortriptyline HCl [Pamelor] 75 mg PO HS lisinopriL [Prinivil] 10 mg PO BID Fluticasone Propion/Salmeterol [Fluticasone-Salmeterol 250-50] 1 puff INHALATION RT-BID DULoxetine HCL [Cymbalta] 60 mg PO DAILY amLODIPine [Norvasc] 10 mg PO HS ARIPiprazole [Abilify] 20 mg PO DAILY clonazePAM [KlonoPIN] 1 mg PO HS PRN PRN Reason: Anxiety Vits A,C,E/Lutein/Minerals [Ocuvite with Lutein Tablet] 1 each PO DAILY HYDROcodone/APAP 7.5-325MG [[place] 7.5-325] 1 tab PO TID Omeprazole [PriLOSEC] 20 mg PO DAILY Discharge Medication List ARIPiprazole [Abilify] 20 mg PO DAILY 01/04/21 [History] Nortriptyline HCl [Pamelor] 75 mg PO HS 01/04/21 [History] Vits A,C,E/Lutein/Minerals [Ocuvite with Lutein Tablet] 1 each PO DAILY 01/04/21 [History] amLODIPine [Norvasc] 10 mg PO HS 01/04/21 [History] clonazePAM [KlonoPIN] 1 mg PO HS PRN 01/04/21 [History] lisinopriL [Prinivil] 10 mg PO BID 01/11/21 [History] DULoxetine HCL [Cymbalta] 60 mg PO DAILY 10/25/22 [History] Fluticasone Propion/Salmeterol [Fluticasone-Salmeterol 250-50] 1 puff INHALATION RT-BID 10/25/22 [History] HYDROcodone/APAP 7.5-325MG [[place] 7.5-325] 1 tab PO TID 10/25/22 [History] Omeprazole [PriLOSEC] 20 mg PO DAILY 10/25/22 [History] Amoxic-Pot Clav 875-125Mg [Augmentin 875-125] 1 tab PO BID 10 Days #20 tab 10/28/22 [Rx] Follow up Appointment(s)/Referral(s): Néstor Mariano DO [Medical Doctor] - 1 Week [place] MD [Primary Care Provider] - 1-2 days Patient Instructions/Handouts: Colitis (ED) Activity/Diet/Wound Care/Special Instructions: Advance Diet as tolerated to Regular Continue antibiotics Follow up with your primary provider in 2 to 3 days. Discharge Disposition: HOME SELF-CARE
== END 2022-10-28 16:09 | disposition home or self-care (01) | DRG 392 ==
LOC: EC 10:31 → 6NMEDSUR 15:18 → OBSVTOIN 10-27 16:52
PROVIDERS: ADMIT Internal Medicine; ATTEND Internal Medicine
DX: K52.9 Noninfective gastroenteritis and colitis, unspecified (principal); K37 Unspecified appendicitis; I10 Essential (primary) hypertension; J44.9 Chronic obstructive pulmonary disease, unspecified; M19.90 Unspecified osteoarthritis, unspecified site; K58.9 Irritable bowel syndrome, unspecified; Z79.899 Other long term (current) drug therapy; Z86.711 Personal history of pulmonary embolism; Z90.710 Acquired absence of both cervix and uterus; Z96.653 Presence of artificial knee joint, bilateral; Z98.1 Arthrodesis status; Z96.612 Presence of left artificial shoulder joint; Z96.611 Presence of right artificial shoulder joint; Z87.891 Personal history of nicotine dependence
CPT/HCPCS: 74176; 80048; 80053; 85025; 87040; 94640; 94760; 96365; 96375; 99285